=== PATIENT | female | born 1985 | race Caucasian/White ===

== ENCOUNTER 2017-03-28 07:58 | Inpatient (IN) ==
[2017-03-28] MEDS ORDERED: Naloxone 0.4 MG/ML INJ IVP PRN (08:01)
[2017-03-28] MEDS ORDERED: Famotidine 20 MG/2 ML VIAL IVP PRN (08:01)
[2017-03-28] MEDS ORDERED: Ondansetron 4 MG/2 ML VIAL IVP PRN (08:01)
[2017-03-28] MEDS ORDERED: Metoclopramide 10 MG/2 ML VIAL IVP PRN (08:01)
[2017-03-28] MEDS ORDERED: miSOPROStol 100 MCG TABLET PO ONE (08:30)
[2017-03-28 08:39] LABS: Basophils % 0.2 %; Eosinophils # 0.1 K/mcL (0.0-0.6); Eosinophils % 0.6 %; Hematocrit 36.9 % (35.3-44.9); Hemoglobin 12.3 g/dL (11.5-15.4); Immature Granulocytes % 0.6 % (0-4); Lymphocytes % 15.7 %; Mean Corpuscular HGB Conc 33.3 g/dL (31.6-35.5); Mean Corpuscular Hemoglobin 30.3 pg (28.0-33.3); Mean Corpuscular Volume 90.9 fL (83.0-100.0); Mean Platelet Volume 8.6 fL (9.4-12.4); Monocytes # 0.9 K/mcL (0.0-1.3); Neutrophils # 9.6 K/mcL (1.6-8.9); Platelet Count 418 K/mcL (140-400); Red Blood Count 4.06 M/mcL (3.82-4.97); Red Cell Distribution Width 13.3 % (11.5-14.5); Segmented Neutrophils % 75.9 %
[2017-03-28 08:48] LABS: Amphetamine Screen,Urine Negative ng/mL (Cutoff=1000); Barbiturate Screen,Urine Negative ng/mL (Cutoff=200); Benzodiazepines Screen,Urine Negative ng/mL (Cutoff=200); Cannabinoid Screen,Urine Negative ng/mL (Cutoff = 50); Cocaine Screen,Urine Negative ng/mL (Cutoff= 300); Opiate Screen,Urine Negative ng/mL (Cutoff=300); Phencyclidine Screen,Urine Negative ng/mL (Cutoff=25)
--- NOTE | 2017-03-28 09:48 | OB/GYN History & Physical ---
Date of Encounter: 03/28/17 Time of Encounter: 09:44 Assessment and Plan (1) Rubella non-immune status, antepartum Current visit: Yes Status: Acute MMR offered after delivery prior to discharge. (2) 40 weeks gestation of Current visit: Yes Status: Acute Induction with PO cytotec History of Present Illness Chief complaint: IOL, 40w0d HPI: Ms. Miguel is a 31 year old female at 40w0d gestation here for induction of labor at term. Blood Type O+, GBS negative, HbSAG NR, Varicella Immune, Rubella Non-Immune. Pt reports + movement, denies LOF, bleeding and pain with contractions. Past Med Surg Social Fam HX - Past Medical History Source: patient Medical history: no medical history Psychiatric history: no psych history - Past Surgical History Surgical History: orthopedic, other (bilateral knee athroscopic surgery 2016), other - Social History Smoking Status: Never smoker Smokeless Tobacco Status: No Alcohol use: none Drug use: none Current living situation: Home, With Family Activity Level: Independent ambulation Recent Out of Country Travel Within the Last 8 Weeks: No Exposure or Possible Exposure to Illness During Travel: No - Family History Mother Living Status: Still Living Hx Family Cardiac Disorders: Yes (HYPERTENSION) Hx Family Respiratory Disorders: No Hx Family Cancer: No Hx Family GI Disorders: No Hx Family Genitourinary Disorders: No Hx Family Endocrine Disorder: No Hx Family Musculoskeletal Disorders: No Hx Family Neuromuscular Disorders: No Hx Family Neurologic Disorders: No Hx Family HEENT Disorders: No Hx Family Autoimmune Disorders: No Hx Family Reproductive Disorders: No Hx Family Psychosocial Disorders: No Hx Family Medical Disorders: No Obstetrical History - Pregnancies : 2 Para: 1 Term: 1 : 0 Ab's: 0 Livin Medications and Allergies Vit Calc,Iron,Folic [ Vitamins] 1 tab PO DAILY 03/28/17 [ History] 3 Allergy/AdvReac Type Severity Reaction Status Date / Time No Known Allergies Allergy Verified 03/28/17 08:37 Review of System OB All systems PM: reviewed and no additional remarkable complaints except as stated Exam - Constitutional Constitutional: well developed, well nourished, no acute distress - HEENT HEENT: Mucus Membranes Moist - Lungs Respiratory exam: CTAB - Cardiovascular Cardiovascular exam: RRR, +S1, +S2 - Abdomen Abdomen: Present: bowel sounds normal, gravid, non tender - Extremities Extremities exam: full ROM, normal capillary refill, normal inspection - Comments Comments: FHR 165 bpm with moderate variability + 15x15 accelerations, no decels. Ctx q 1.5-2 minutes. Results Result Diagrams: 03/28/17 08:31 Abnormal lab results WBC 12.7 K/mcL (4.3-11.1) H 03/28/17 08:31 Plt Count 418 K/mcL (140-400) H 03/28/17 08:31 MPV 8.6 fL (9.4-12.4) L 03/28/17 08:31 Neutrophils # 9.6 K/mcL (1.6-8.9) H 03/28/17 08:31 All other labs normal. - VTE Reasons for not Prescribing Prophylaxis: Treatment not Indicated - Low risk for VTE
--- NOTE | 2017-03-28 10:33 | Anesthesia Evaluation PreOp ---
Date of Encounter: 03/28/17 Time of Encounter: 10:09 - Past History Planned Operation: labor epidural Cardiac History: Denies any Significant Hx Pulmonary History: Denies Any Significant HX INCLINOMETER TESTER History: Denies Any Significant HX Other Medical History: Denies Any Significant HX, Other (morbid obesity-BMI 42) Anesthesia History: No Prior Anesthetic Complications, Past Anesthesia ( bilateral knee scopes. PONV with first, no other complications. No problems with previous epidural. No family history of anesthetic problems.) Alcohol Use: none Drug use: none Medications and Allergies Vit Calc,Iron,Folic [ Vitamins] 1 tab PO DAILY 03/28/17 [ History] 3 Allergy/AdvReac Type Severity Reaction Status Date / Time No Known Allergies Allergy Verified 03/28/17 08:37 - Meds/Allergy Pre-op Review Medications Reviewed: Yes Allergies Reviewed: Yes Beta Blockers on Current Med List: No Anesthesia Results - Labs 03/28/17 08:31 Anesthesia Exam VSS, FHTs stable. Height: 5'3" Weight: 107kg NPO (# of Hours): >8 hrs. solids, sipping liquids Pain Scale: 0 Pain Scale Used: Numeric (1 - 10) - HEENT Pupil (Motor): Pupils equal, EOMI Mallampati: II Teeth: Normal Denture Type: Upper: Partial (removable), Lower: Partial Oral Opening: Greater than 3 - INCLINOMETER TESTER LOC: Oriented INCLINOMETER TESTER Motor: Normal RUE, Normal LUE, Normal RLE, Normal LLE, Normal Face INCLINOMETER TESTER Sensory: Normal: RUE, LUE, RLE, LLE, Face - Cardiac Rhythm: Regular - Pulmonary Breath Sounds: bilateral Clear Respiratory Effort: Symmetrical Anesthesia Assess/Plan ASA Score: 3 Modified Bath Scale for Level of Consciousness: Cooperative, oriented, and tranquil Anesthetic Plan: Regional Monitoring Plan: Standard Monitors
[2017-03-28] MEDS ORDERED: *HR* FentaNYL (PF) 100 MCG/2 ML VIAL EP ONE (10:36)
[2017-03-28] MEDS ORDERED: Bupivacaine-MPF 0.25% 10 ML VIAL EP ONE (10:36)
[2017-03-28] MEDS ORDERED: Epidural Premix (fent/bupiv) 110 ML EP SCH (10:45)
[2017-03-28] MEDS ORDERED: Ringers Solution, Lactated 1,000 ML IVC SCH (12:00)
[2017-03-28] MEDS ORDERED: *HR* Nalbuphine 20 MG/ML AMPUL IVP PRN (12:00)
[2017-03-28] MEDS ORDERED: Oxytocin 20 units/ LR 1000 mL 20 UNIT/1,000 ML BAG IVC ONE (13:06)
--- NOTE | 2017-03-28 13:12 | OB Labor Progress Note ---
Date of Encounter: 03/28/17 Time of Encounter: 13:10 Labor Progress Note - Subjective Subjective: Patient resting comfortably, patient denies any pain. - Cervix Cervix: 3/60/-2 - Heart Tones Heart Tones: 135 bpm moderate variability +15x15 accels no decels noted. cat 1 tracing. - [place]: 1-3 min apart - Interventions Interventions: SVE - Plan Plan: continue labor management, patient may have nubain or epidural when desires
[2017-03-28] MEDS ORDERED: Oxytocin 20 units/ LR 1000 mL 20 UNIT/1,000 ML BAG IVC SCH (13:15)
--- NOTE | 2017-03-28 16:54 | OB Labor Progress Note ---
Date of Encounter: 03/28/17 Time of Encounter: 16:51 Labor Progress Note - Subjective Subjective: Patient doing well, Discussed POC with patient. Patient denies any questions or concerns. - Cervix Cervix: 4/80/-1 - Heart Tones Heart Tones: 125 bpm moderate variability +15x15 accels no decels noted. Cat. 1 tracing - [place]: every 2 min - Interventions Interventions: SVE, AROM large amount of clear fluid. IUPC placed without difficulty. Patient tolerated well. - Plan Plan: Patient may have epidural when desires. Continue labor management.
[2017-03-28] MEDS ORDERED: Epidural Premix (fent/bupiv) 110 ML EP ONE (16:56)
[2017-03-28] MEDS ORDERED: Bupivacaine-MPF 0.25% 10 ML VIAL ONE (16:56)
[2017-03-28] MEDS ORDERED: *HR* FentaNYL (PF) 100 MCG/2 ML VIAL ONE (16:56)
--- NOTE | 2017-03-28 17:34 | Anesthesia Procedures ---
Date of Encounter: 03/28/17 Time of Encounter: 16:58 Procedures: Anesthesia - Epidural/Spinal Patient ID/Chart reviewed: Yes Patient examined: Yes OB Eval: Gestational age: 39 OB Eval: : 2 OB Eval: Hx Para: 1 OB Eval: Dilated at (cm): 4 OB Eval: Contractions: Non-stressed pattern Consent Obtained: Yes Supplemental Oxygen: None/Room Air Site Prep: Aseptic Technique, Sterile prep and drape, Povidone-Iodine 1% Patient position: upright Local Anesthetic: Lidocaine 1% Amount of Local Anesthetic used: 3 Touhy Needle Gauge: 18 Touhy Needle Depth (cm): 6 Catheter Depth at Skin (cm): 18 Test Dose (1.5% Lido + Epi): Volume given (mls): 3 Test Dose Result: Negative Loading Dose: 0.25% Marcaine (mls): 8 Loading Dose: Fentanyl (mcg): 100 Loading Dose Administered: Thru Catheter Infusion Med: 0.125% Bupivacaine w/ 2 mcg/ml Fentanyl Infusion Rate (mls/hr): [address]: Tegaderm, Tape Interspace Used: L3-L4 Loss of Resistance (VELIA): Yes Blood: No CSF: No Paresthesia: No Vitals + FHT's: 3 Vital Signs Time 1658 1715 1720 1725 1730 BP 123/83 152/79 160/63 141/71 136/74 Pulse 102 112 97 94 92 FHTs 130 130 130 130 130
--- NOTE | 2017-03-28 20:59 | OB Labor Progress Note ---
Date of Encounter: 03/28/17 Time of Encounter: 20:57 Labor Progress Note - Subjective Subjective: Patient resting, denies any pain. - Cervix Cervix: 5/90/-1 - Heart Tones Heart Tones: 145 bpm moderate variability +15x15 accels - [place]: 1-3 min - Interventions Interventions: SVE, patient repositioned - Plan Plan: Continue labor management
--- NOTE | 2017-03-28 21:52 | OB Labor Progress Note ---
Date of Encounter: 03/28/17 Time of Encounter: 21:49 Labor Progress Note - Subjective Subjective: Called to LDR, FHR 145 bpm moderate variability, decels noted with FHR down to 70 bpm - Cervix Cervix: 7/100/0 - Heart Tones Heart Tones: 140 bpm with decelerations - [place]: 2-2.5 min apart - Interventions Interventions: SVE, Repositioned, Pitocin off, O2 applied per mask. Dr Gilliland notified and called to bedside for potential section. Abdominal clipper prep and chg cloth prep completed. FSE applied. - Plan Plan: Continue labor management.
[2017-03-29] MEDS ORDERED: Epidural Premix (fent/bupiv) 110 ML EP ONE (00:37)
[2017-03-29] MEDS ORDERED: Ibuprofen 600 MG TABLET PO ONE (01:51)
--- NOTE | 2017-03-29 01:54 | OB/GYN Procedure Note ---
Delivery - Delivery Date: 03/29/17 Provider: Haley Watts ([facility]) Intrapartum events: none Delivery induction: oxytocin, misoprostol Delivery augmentation: rupture of membranes Delivery monitor: external FHT, external uterine, internal FHT, internal uterine Anesthesia: epidural Estimated Blood Loss: 200 - Infant (s) Infant A Infant Delivery Date: 03/29/17 Infant Delivery Time: 01:30 Presentation: vertex Position: ABAD Route of delivery: Gender: Female Viability: Viable Pounds: 7 Ounces: 5 Weight Gram: 3315 kg at 1 minute: 8 at 5 mins: 9 Shoulder Dystocia: not encountered Specimens collected: cord blood Placenta: spontaneous Cord: 3 umbilical vessels - Repair Episiotomy: none Laceration Description: Perineal - 1st Degree (Repaired with 3-0 Vicryl) - Complications Delivery complications: none - Disposition Mom disposition: stable in LDR [place] disposition: stable in LDR - Comments Comments: Under maternal effort, viable female delivered over 1st degree perineal laceration, repaired with 3-0 Vicryl. No meconium or shoulder dystocia encountered. Infant to maternal abdomen, cord clamped and cut after pulsation ceased, cord blood specimen obtained. Janice care completed, mother and infant in stable condition in LDR for 2 hour recovery. All counts correct.
[2017-03-29] MEDS ORDERED: Measles/Mumps/Rubella Vacc 0.5 ML VIAL SQ PRN (02:14)
[2017-03-29] MEDS ORDERED: *HR* HYDROcodone/Acet 5/325 mg TABLET PO PRN (02:14)
[2017-03-29] MEDS ORDERED: Acetaminophen 325 MG TABLET PO PRN (02:14)
[2017-03-29] MEDS ORDERED: Oxytocin 20 units/ LR 1000 mL 20 UNIT/1,000 ML BAG IVC SCH (02:15)
[2017-03-29] MEDS: Prenatal Vit/FA 1 EACH TABLET PO SCH (10:09)
[2017-03-29] MEDS: Ibuprofen 600 MG TABLET PO PRN ×2 (13:58→20:26)
--- NOTE | 2017-03-30 07:28 | Discharge Summary ---
Date of Encounter: 03/30/17 Time of Encounter: 07:26 - Discharge Diagnosis (1) Vaginal delivery Priority: Primary Status: Acute Comments: Pt meeting all milestones. Pain well managed. Bottle feeding. Desires discharge - Discharge Medications Prescriptions: Ibuprofen [Motrin] 600 mg PO Q6HR PRN #60 tab PRN Reason: Cramping Docusate [Colace] 100 mg PO BID #60 Home Medications: Vit Calc,Iron,Folic [ Vitamins] 1 tab PO DAILY 03/28/17 [ History] Acetaminophen [Tylenol] 650 mg PO Q6HR PRN tab 03/30/17 [Rx] Docusate [Colace] 100 mg PO BID #60 03/30/17 [Rx] Ibuprofen [Motrin] 600 mg PO Q6HR PRN #60 tab 03/30/17 [Rx] Vit/FA 1 each PO DAILY tab 03/30/17 [Rx] Allergies/Adverse Reactions: 3 Allergy/AdvReac Type Severity Reaction Status Date / Time No Known Allergies Allergy Verified 03/28/17 08:37 Data Procedures and tests throughout hospitalization: Laboratory Tests 03/28/17 03/28/17 08:25 08:31 WBC 12.7 H RBC 4.06 Hgb 12.3 Hct 36.9 MCV 90.9 MCH 30.3 MCHC 33.3 RDW 13.3 Plt Count 418 H MPV 8.6 L Immature Gran % 0.6 Seg Neutrophils % 75.9 Lymphocytes % 15.7 Monocytes % 7.0 Eosinophils % 0.6 Basophils % 0.2 Neutrophils # 9.6 H Lymphocytes # 2.0 Monocytes # 0.9 Eosinophils # 0.1 Basophils # 0.0 Urine Opiates Screen Negative Ur Barbiturates Screen Negative Ur Phencyclidine Scrn Negative Ur Amphetamines Screen Negative U Benzodiazepines Scrn Negative Urine Cocaine Screen Negative U Marijuana (THC) Screen Negative Date of admission: 03/28/17 07:58 Primary care physician: PCP NONE Discharging clinician: Audrey Castillo Anticipated date of discharge: 03/30/17 - Patient Status Disposition: Home, Self-Care Condition: Good Functional capacity at discharge: independent ambulation Overall status at discharge: patient is back to baseline - Discharge Instructions Follow Up With: NONE,PCP [Primary Care Provider] - - Diet and Activity Diet: regular diet Hospital Course Delivery: Episiotomy: none Laceration: 1st degree Other procedures: none complications: none Discharge diagnosis: IUP at term delivered [place] baby: female Hospital course: Delivery - Delivery Date: 03/29/17 Provider: Haley Watts [facility]) Intrapartum events: none Delivery induction: oxytocin, misoprostol Delivery augmentation: rupture of membranes Delivery monitor: external FHT, external uterine, internal FHT, internal uterine Anesthesia: epidural Estimated Blood Loss: 200 - (s) A Infant Delivery Date: 03/29/17 Infant Delivery Time: 01:30 Presentation: vertex Position: ABAD Route of delivery: Gender: Female Viability: Viable Pounds: 7 Ounces: 5 Weight Gram: 3315 kg at 1 minute: 8 at 5 mins: 9 Shoulder Dystocia: not encountered Specimens collected: cord blood Placenta: spontaneous Cord: 3 umbilical vessels - Repair Episiotomy: none Laceration Description: Perineal - 1st Degree (Repaired with 3-0 Vicryl) - Complications Delivery complications: none - Disposition Mom disposition: stable in PP and appropriate for discharge Time Attestation: Total time spent providing and/or coordinating discharge services: Time Spent: Less than 30 minutes Exam - Constitutional Vitals: Temp Pulse Resp BP Pulse Ox 98.1 F 80 15 128/88 99 03/29/17 20:31 03/29/17 20:31 03/29/17 20:31 03/29/17 20:31 03/29/17 20:31 General appearance IM: A&O X 3 - Respiratory Respiratory exam: Present: CTAB - Cardiovascular Cardiovascular exam IM: Present: RRR - GI/Abdominal GI/Abdominal exam IM: normal bowel sounds, soft - Uterine Tone: Firm Uterus Position: At Umbilicus - Extremities Exam Extremities exam IM: Present: normal capillary refill, normal inspection - Neurological Exam Neurological exam: normal gait, oriented X3 - Psychiatric Additional comments: reports good mood
[2017-03-30] MEDS: Prenatal Vit/FA 1 EACH TABLET PO SCH (08:00)
[2017-03-30] MEDS: Ibuprofen 600 MG TABLET PO PRN (08:01)
[2017-03-30 08:29] VITALS: BP 124/84
== END 2017-03-30 09:58 | disposition home or self-care (01) | DRG 560 ==
LOC: 1NENULAB 07:58 → 1NENUOBS 03-29 02:21
PROVIDERS: ADMIT Advanced Practice Midwife; ATTEND Advanced Practice Midwife